=== PATIENT | female | born 1940 | race African-American/Black ===

== ENCOUNTER 2019-10-13 16:57 | Emergency (ER) | payer OTHER ==
--- NOTE | 2019-10-13 18:17 | ER Document Report ---
ED Medical Screen (RME) - General Chief Complaint: Blood Pressure Problem Stated Complaint: LIGHTHEADED Time Seen by Provider: 10/13/19 18:09 Information source: Patient Notes: HPI; 78-year-old female presents the emergency room stating that 1 week ago she went for a walk for approximately an hour when she got back she went to sit down she became lightheaded and diaphoretic. States has not been feeling herself for the past week. Noticed that her blood pressure has been fluctuating to as high as 170/90 taking her medications but her blood pressure is still been abnormal. No history of CVA. PE: She is alert and oriented x3. Mild slight tongue deviation to the right. Flooring Salesperson strength equal and adequate bilaterally. Normal sensation. Normal speech. Lungs are clear to auscultation without rales, rhonchi, wheezes. Heart: Regular rate rhythm without murmurs, rubs, gallops. I have greeted and performed a rapid initial assessment of this patient. A comprehensive ED assessment and evaluation of the patient, analysis of test results and completion of the medical decision making process will be conducted by additional ED providers. I have specifically instructed the patient or family members with the patient to immediately return to any nursing staff should anything change in the patient's condition or with their chief complaint. TRAVEL OUTSIDE OF THE [place] IN LAST 30 DAYS: No Physical Exam - Vital signs Vitals: Temp Pulse Resp BP Pulse Ox 98.0 F 73 16 156/81 H 97 10/13/19 17:02 10/13/19 17:02 10/13/19 17:02 10/13/19 17:02 10/13/19 17:02 Course - Vital Signs Vital signs: Temp Pulse Resp BP Pulse Ox 98.0 F 73 16 156/81 H 97 10/13/19 17:02 10/13/19 17:02 10/13/19 17:02 10/13/19 17:02 10/13/19 17:02
[2019-10-13 18:42] LABS: ABSOLUTE BASOPHILS # (AUTO) 0.1 10^3/uL (0.0-0.2); ABSOLUTE EOSINOPHILS # (AUTO) 0.3 10^3/uL (0.0-0.6); ABSOLUTE LYMPHOCYTES (AUTO) 2.4 10^3/uL (0.5-4.7); ABSOLUTE MONOCYTES (AUTO) 0.5 10^3/uL (0.1-1.4); ABSOLUTE NEUT (AUTO) 3.5 10^3/uL (1.7-8.2); BASOPHILS % (AUTO) 0.9 % (0-2); EOSINOPHILS % (AUTO) 4.9 % (0-6); HEMATOCRIT 37.1 % (36.0-47.0); HEMOGLOBIN 12.2 g/dL (12.0-15.5); MEAN CORPUSCULAR HEMOGLOBIN 27.3 pg (27.0-33.4); MEAN CORPUSCULAR HGB CONC 32.8 g/dL (32.0-36.0); MEAN CORPUSCULAR VOLUME 83 fl (80-97); PLATELET COUNT 207 10^3/uL (150-450); RED BLOOD COUNT 4.46 10^6/uL (3.72-5.28); RED CELL DISTRIBUTION WIDTH 13.7 % (11.5-14.0); SEGMENTED NEUTROPHILS % (AUTO) 52.2 % (42-78); TOTAL CELLS COUNTED % (AUTO) 100 %; WHITE BLOOD COUNT 6.7 10^3/uL (4.0-10.5)
[2019-10-13 18:49] LABS: APPEARANCE,URINE CLEAR; BILIRUBIN,URINE NEGATIVE (NEGATIVE); COLOR,URINE STRAW; GLUCOSE, URINE NEGATIVE (NEGATIVE); INTERNATIONAL RATION (INR) 0.96; KETONES,URINE NEGATIVE (NEGATIVE); LEUKOCYTE ESTERASE,URINE MODERATE (NEGATIVE); NITRITE,URINE NEGATIVE (NEGATIVE); PROTEIN,URINE NEGATIVE (NEGATIVE); PROTHROMBIN TIME 12.7 SEC (11.4-15.4); URINE SPECIFIC GRAVITY 1.003; UROBILINOGEN,URINE NEGATIVE mg/dL (<2.0)
[2019-10-13 19:01] LABS: ALBUMIN 4.5 g/dL (3.5-5.0); ALKALINE PHOSPHATASE 81 U/L (38-126); ANION GAP 7 (5-19); ASPARTATE AMINO TRANSFERASE 26 U/L (14-36); BILIRUBIN,TOTAL 0.3 mg/dL (0.2-1.3); BLOOD UREA NITROGEN 19 mg/dL (7-20); CALCIUM 10.2 mg/dL (8.4-10.2); CARBON DIOXIDE 31 mmol/L (22-30); CHLORIDE 102 mmol/L (98-107); GLUCOSE 98 mg/dL (75-110); POTASSIUM 4.8 mmol/L (3.6-5.0); TOTAL PROTEIN 8.1 g/dL (6.3-8.2)
--- NOTE | 2019-10-13 19:29 | RADIOLOGY REPORT (SQ) ---
EXAM DESCRIPTION: CT HEAD WITHOUT IMAGES COMPLETED DATE/TIME: 10/13/2019 7:20 pm REASON FOR STUDY: dizzy COMPARISON: None. TECHNIQUE: Axial images acquired through the brain without intravenous contrast. Images reviewed wi th bone, brain and subdural windows. Additional sagittal and coronal reconstructions were generated. Images stored on PACS. All CT scanners at this facility use dose modulation, iterative reconstruction, and/or weight based d osing when appropriate to reduce radiation dose to as low as reasonably achievable (ALARA). [facility]: Dose Right [facility]: CareDose [facility]: Dose Right [facility]: Teradose 4D [facility]: Smart Grid[employer]ets RADIATION DOSE: CT Rad equipment meets quality standard of care and radiation dose reduction techniq ues were employed. CTDIvol: 53.2 mGy. DLP: 964 mGy-cm. mGy. LIMITATIONS: None. FINDINGS: VENTRICLES: Normal size and contour. CEREBRUM: No masses. No hemorrhage. No midline shift. No evidence for acute infarction. Normal gra y/white matter differentiation. No areas of low density in the white matter. CEREBELLUM: No masses. No hemorrhage. No alteration of density. No evidence for acute infarction. EXTRAAXIAL SPACES: No fluid collections. No masses. ORBITS AND GLOBE: No intra- or extraconal masses. Normal contour of globe without masses. CALVARIUM: No fracture. PARANASAL SINUSES: No fluid or mucosal thickening. SOFT TISSUES: No mass or hematoma. OTHER: No other significant finding. IMPRESSION: NORMAL BRAIN CT WITHOUT CONTRAST. EVIDENCE OF ACUTE STROKE: NO. COMMENT: Quality ID # [id number]: Final reports with documentation of one or more dose reduction techniques (e.g., Automated exposure control, adjustment of the mA and/or kV according to patient size, use of iterative reconstruction technique) TECHNICAL DOCUMENTATION: JOB ID: [id number] 2010 [email or web address]- All Rights Reserved Reading location - IP/workstation name: [email or web address]
[2019-10-13] MEDS ORDERED: HYDRALAZINE HCL 50 MG TABLET PO ONE (20:43)
--- NOTE | 2019-10-13 20:49 | ER Document Report ---
ED General - General Chief Complaint: Dizziness Stated Complaint: LIGHTHEADED Time Seen by Provider: 10/13/19 18:09 TRAVEL OUTSIDE OF THE [place] IN LAST 30 DAYS: No - HPI Notes: Patient is a 78-year-old female who presents to the emergency department for evaluation of headache, dizziness, "just not feeling right." She states that 11 days ago she took a walk, it was a very hot day. She states that her words she felt extremely fatigued, got very diaphoretic. She states that she went inside and went to sleep, she slept from the afternoon until the next morning. She states that since then she has not been feeling right. She states she does feel slightly weak, slightly dizzy. She has a headache that she has been attributing to her blood pressure not being well controlled. She states he has been seeing systolic blood pressure readings over 200. She denies any chest pain or shortness of breath. She has been seeing, speaking, swallowing without difficulty. Moving arms and legs without difficulty. - Related Data Allergies/Adverse Reactions: acetaminophen [From Percocet] Allergy (Verified 10/13/19 18:19) cucumber Allergy (Verified 10/13/19 18:19) eggplant Allergy (Verified 10/13/19 18:19) oxycodone [From Percocet] Allergy (Verified 10/13/19 18:19) Home Medications: Triamterene/HCTZ, atenolol, hydralazine, baby aspirin Past Medical History - General Information source: Patient - Social History Smoking Status: Never Smoker Chew tobacco use (# tins/day): No Frequency of alcohol use: None Drug Abuse: None Family History: Reviewed & Not Pertinent Patient has homicidal ideation: No - Past Medical History Cardiac Medical History: Reports: Hx Hypertension Review of Systems - Review of Systems Constitutional: See HPI Neurological/Psychological: See HPI -: Yes All other systems reviewed and negative Physical Exam - Vital signs Vitals: Temp Pulse Resp BP Pulse Ox 98.0 F 73 16 156/81 H 97 10/13/19 17:02 10/13/19 17:02 10/13/19 17:02 10/13/19 17:02 10/13/19 17:02 - Notes Notes: Vital signs reviewed, please refer to chart. Head is normocephalic, atraumatic. Pupils equal round, reactive to light. Neck is supple without meningismus. Heart is regular rate and rhythm. Lungs are clear to auscultation bilaterally. Abdomen is soft, nontender, normoactive bowel sounds throughout. Extremities without cyanosis, clubbing. Posterior calves are nontender. Peripheral pulses are equal. Skin is warm and dry. Patient is awake, alert, oriented x3. Cranial nerves II - XII are grossly intact without focal neurological deficits. Strength is plus 5 out of 5 bilateral upper and lower extremities. Sensation is intact. Reflexes symmetrical. Intact [id number], rapid alternating m ovements, [id number]. Course - Re-evaluation Re-evalutation: 10/13/19 20:45 Patient presents to the emergency department for evaluation. She has had elevated blood pressures this week. She admits to headache as well. She curren tly puts her headache at a 6 out of 10. She states is been somewhat helped by Tylenol at home. She has a normal neurological exam here. I did review the note earlier that stated that she had some right-sided tongue deviation, but she did not have this on my exam. Her blood pressure remains elevated. She has tried to contact her primary care provider, but this is in [place], and she has been unable to get through to a provider to discuss any medication changes with her. Her laboratory investigations were largely unremarkable. Certainly mild dehydration might be contributing to her headache, but I am also concerned about her blood pressures running this high. I will increase her hydralazine from 50 mg twice a day to 100 mg twice a day. She is warranted to keep a close eye on her blood pressure, to make sure it is not getting too low. She is warned of symptoms of hypotension, which should prompt her to come back to the ED. She voiced understanding. She is unsure as to whether or not she will be getting back to [place] anytime soon. I will send her for follow-up with our on-call primary care provider, Dr. Adams. If she develops worsening or new concerning symptoms of any sort, she is to return immediately to the emergency department for reevaluation. - Vital Signs Vital signs: Temp Pulse Resp BP Pulse Ox 98.0 F 73 21 H 162/66 H 97 10/13/19 18:08 10/13/19 17:02 10/13/19 21:50 10/13/19 21:50 10/13/19 21:50 - Laboratory Result Diagrams: 10/13/19 18:29 10/13/19 18:29 Laboratory results interpreted by me: 10/13/19 10/13/19 18:29 18:29 Carbon Dioxide 31 H Est GFR ( Amer) 59 L Est GFR (MDRD) Non-Af 49 L Ur Leukocyte Esterase MODERATE H - Diagnostic Test Radiology reviewed: Reports reviewed Radiology results interpreted by me: 10/13/19 20:[address] 10/13/19 18:14 IMPRESSION: NORMAL BRAIN CT WITHOUT CONTRAST. EVIDENCE OF ACUTE STROKE: NO. Discharge - Discharge Clinical Impression: Elevated blood pressure reading with diagnosis of hypertension, Dizziness Headache Qualifiers: Headache chronicity pattern: acute headache Intractability: not intractable Condition: Stable Disposition: HOME, SELF-CARE Instructions: Dizziness ([facility]), Headache ([facility]), High Blood Pressure, Requiring Treatment ([facility]) Additional Instructions: Laboratory investigations and noncontrast CT scan of your head turned out to be normal today. You have been given IV fluids, are being given an extra dose of hydralazine. Please increase your hydralazine from 50 mg twice daily to 100 mg twice daily. Please keep a close eye on your blood pressures. If they end up t oo low, or if you develop dizziness, shortness of breath, or any other new symptoms, please return immediately to the ED for further evaluation. Otherwise, follow-up with our on-call physician, Dr. Adams next week. Prescriptions: Hydralazine HCl 100 mg PO BID #14 tablet
[2019-10-13] MEDS: NORMAL SALINE 500 ML IV ONE ×2 (20:59→21:43)
[2019-10-13 21:54] VITALS: BP 162/66
== END 2019-10-13 22:01 | disposition home or self-care (01) ==
LOC: ER 16:57
DX: I10 Essential (primary) hypertension (principal); R42 Dizziness and giddiness; R51 Headache; R53.1 Weakness; Z79.899 Other long term (current) drug therapy; Z79.82 Long term (current) use of aspirin; Z88.8 Allergy status to other drugs, medicaments and biological substances; Z91.018 Allergy to other foods; Z88.6 Allergy status to analgesic agent; Z88.5 Allergy status to narcotic agent
CPT/HCPCS: 99284; 36415; 87086; 85025; 85610; 80053; 81001; 84484; 70450; A9270; J7040